=== PATIENT | female | born 1950 | race Two or more races ===

== ENCOUNTER 2017-12-20 07:30 | Outpatient (CLI) | payer OTHER | END 2017-12-20 07:33 | disposition home or self-care (01) | LOC: RAD 07:30 | DX: C90.00 Multiple myeloma not having achieved remission (principal) ==

== ENCOUNTER 2018-06-22 09:11 | Outpatient (CLI) | payer OTHER | END 2018-06-22 10:32 | disposition home or self-care (01) | LOC: RAD 09:11 → LAB 09:11 | DX: D64.89 Other specified anemias (principal); D68.8 Other specified coagulation defects; I10 Essential (primary) hypertension; Z01.810 Encounter for preprocedural cardiovascular examination; Z01.812 Encounter for preprocedural laboratory examination ==

== ENCOUNTER 2019-03-31 15:19 | Emergency (ER) | payer OTHER ==
[~2019-03-31] VITALS: Ht 154.9 cm; Wt 78.9 kg
[2019-03-31] MEDS ORDERED: GLYCOTROL CAPS1 EACH (15:44)
[2019-03-31] MEDS ORDERED: PREDNISONE5 M1 (15:45)
== END 2019-03-31 17:58 | disposition home or self-care (01) ==
LOC: ER 15:19
DX: S42.292A Other displaced fracture of upper end of left humerus, initial encounter for closed fracture (principal); W07.XXXA Fall from chair, initial encounter; Y93.89 Activity, other specified; Y92.89 Other specified places as the place of occurrence of the external cause; Y99.8 Other external cause status

== ENCOUNTER 2019-04-11 10:03 | Outpatient (CLI) | payer OTHER ==
[~2019-04-11 10:03] MED LIST: GLYCOTROL CAPS1 EACH; PREDNISONE5 M1
== END 2019-04-11 10:13 | disposition home or self-care (01) ==
LOC: RAD 10:03 → MAMO-SONO 10:15
DX: M05.79 Rheumatoid arthritis with rheumatoid factor of multiple sites without organ or systems involvement (principal); M79.89 Other specified soft tissue disorders; S42.222A 2-part displaced fracture of surgical neck of left humerus, initial encounter for closed fracture

== ENCOUNTER 2019-05-09 09:25 | Outpatient (CLI) | payer OTHER | END 2019-05-09 09:30 | disposition home or self-care (01) | LOC: RAD 09:25 | DX: S42.222D 2-part displaced fracture of surgical neck of left humerus, subsequent encounter for fracture with routine healing (principal) ==

== ENCOUNTER 2019-07-24 11:25 | Outpatient (CLI) | payer OTHER | END 2019-07-24 11:38 | disposition home or self-care (01) | LOC: RAD 11:25 | DX: M12.811 Other specific arthropathies, not elsewhere classified, right shoulder (principal); M12.812 Other specific arthropathies, not elsewhere classified, left shoulder; J32.8 Other chronic sinusitis ==

== ENCOUNTER 2019-08-16 09:09 | Outpatient (CLI) | payer OTHER | END 2019-08-16 10:00 | disposition home or self-care (01) | LOC: TOM 09:09 | DX: J45.40 Moderate persistent asthma, uncomplicated (principal); R05 Cough ==

== ENCOUNTER 2021-02-21 09:16 | Outpatient (CLI) | payer OTHER | END 2021-02-21 09:26 | disposition home or self-care (01) | LOC: MAMO-SONO 09:16 | PROVIDERS: ATTEND Internal Medicine Cardiovascular Disease | DX: N60.02 Solitary cyst of left breast (principal); N60.01 Solitary cyst of right breast; N64.59 Other signs and symptoms in breast; Z12.31 Encounter for screening mammogram for malignant neoplasm of breast ==

== ENCOUNTER 2021-09-12 09:13 | Outpatient (CLI) | payer OTHER | END 2021-09-12 09:29 | disposition home or self-care (01) | LOC: MRI 09:13 | PROVIDERS: ATTEND Psychiatry & Neurology Neurology | DX: G30.1 Alzheimer's disease with late onset (principal) | CPT/HCPCS: 70551 ==

== ENCOUNTER 2022-05-12 09:21 | Outpatient (CLI) | payer OTHER | END 2022-05-12 15:16 | disposition home or self-care (01) | LOC: TOM 09:21 | DX: J67.8 Hypersensitivity pneumonitis due to other organic dusts (principal); J84.9 Interstitial pulmonary disease, unspecified ==

== ENCOUNTER 2023-05-24 07:42 | Outpatient (CLI) | payer OTHER | END 2023-05-24 15:26 | disposition home or self-care (01) | LOC: TOM 07:42 | PROVIDERS: ATTEND Internal Medicine Cardiovascular Disease | DX: R10.9 Unspecified abdominal pain (principal); K57.30 Diverticulosis of large intestine without perforation or abscess without bleeding ==

== ENCOUNTER 2023-05-27 09:45 | Outpatient (CLI) | payer OTHER | END 2023-05-27 09:46 | disposition home or self-care (01) | LOC: RAD 09:45 | PROVIDERS: ATTEND Internal Medicine Cardiovascular Disease | DX: M12.9 Arthropathy, unspecified (principal); M46.48 Discitis, unspecified, sacral and sacrococcygeal region ==